=== PATIENT | female | born 1985 | race African-American/Black ===

== ENCOUNTER 2017-09-16 17:44 | Emergency (ER) | payer MEDICAID ==
[~2017-09-16] VITALS: Ht 149.9 cm; Wt 61.0 kg
[2017-09-16] MEDS ORDERED: METF500T4 PO (17:50)
[2017-09-16] MEDS ORDERED: SODIUM CHLORIDE 0.9% 1,000 ML IV ONE (18:29)
[2017-09-16 18:59] LABS: CHLORIDE 94 mEq/L (98-107); INR 1.1; PROTHROMBIN TIME 11.2 sec (9.4-11.6)
[2017-09-16 19:03] LABS: BASOPHILS % 0.7 % (0.0-2.0); EOSINOPHILS % 1.6 % (0.0-5.0); HEMATOCRIT. 34.3 % (36.0-48.0); HEMOGLOBIN. 10.8 g/dL (12.0-16.0); LYMPHOCYTES % 23.9 % (20.0-50.0); MEAN CORPUSCULAR HEMOGLOBIN 27.3 pg (28.0-32.0); MEAN CORPUSCULAR VOLUME 87.1 fL (81.0-99.0); MEAN PLATELET VOLUME 9.1 fl (7.4-10.4); MONOCYTES % 11.6 % (2.0-8.0); NEUTROPHILS % 62.2 % (40.0-76.0); PLATELET 405 x1000/uL (130-400); RED BLOOD CELL COUNT 3.94 mill/uL (4.2-5.4); RED CELL DISTRIBUTION WIDTH 16.8 % (11.6-14.6)
[2017-09-16 19:07] LABS: CARBON DIOXIDE 24 mEq/L (21-32)
[2017-09-16 21:00] VITALS: BP 139/108
[2017-09-16 21:33] LABS: KETONES URINE 2+ (NEGATIVE); LEUKOCYTE ESTERASE URINE NEGATIVE (NEGATIVE); NITRITE URINE NEGATIVE (NEGATIVE); OCCULT BLOOD URINE NEGATIVE (NEGATIVE); PROTEIN URINE NEGATIVE (NEGATIVE); SPECIFIC GRAVITY URINE 1.036 (1.005-1.030); UROBILINOGEN URINE 0.2 E.U./dL (0.2-1.0)
[2017-09-16 21:36] LABS: CLARITY URINE CLEAR (CLEAR); COLOR URINE YELLOW (YELLOW)
[2017-09-16] MEDS ORDERED: INSULIN REGULAR (HUMULIN R) 300UNITS/3ML IV ONE (22:30)
== END 2017-09-17 00:22 | disposition home or self-care (01) ==
LOC: ER 18:22
DX: E11.65 Type 2 diabetes mellitus with hyperglycemia (principal); I10 Essential (primary) hypertension; R53.1 Weakness; R42 Dizziness and giddiness; Z79.84 Long term (current) use of oral hypoglycemic drugs
CPT/HCPCS: 36415; 80053; 81001; 81025; 82962; 85025; 85610; 87086; 93005; 96361; 96374; 99285; J1815; J7030; Z7610

== ENCOUNTER 2019-12-20 02:55 | Inpatient (IN) | payer MEDICAID ==
[~2019-12-20] VITALS: Ht 151.1 cm; Wt 73.0 kg
[~2019-12-20 02:55] MED LIST: METF-414 PO
[2019-12-20] MEDS ORDERED: SODIUM CHLORIDE 0.9% 1,000 ML IV ONE ×2 (03:10→03:15)
[2019-12-20] MEDS ORDERED: ONDANSETRON HCL 4MG/2ML INJ IV STA (03:10)
[2019-12-20 03:32] LABS: BASOPHILS % 0.3 % (0.0-2.0); HEMATOCRIT. 36.6 % (36.0-48.0); HEMOGLOBIN. 12.5 g/dL (12.0-16.0); LYMPHOCYTES % 33.2 % (20.0-50.0); MEAN CORPUSCULAR HEMOGLOBIN 31.9 pg (28.0-32.0); MEAN CORPUSCULAR VOLUME 93.3 fL (81.0-99.0); MEAN PLATELET VOLUME 8.6 fl (7.4-10.4); MONOCYTES % 11.7 % (2.0-8.0); NEUTROPHILS % 53.8 % (40.0-76.0); PLATELET 360 x1000/uL (130-400); RED BLOOD CELL COUNT 3.93 mill/uL (4.2-5.4); RED CELL DISTRIBUTION WIDTH 12.9 % (11.6-14.6)
[2019-12-20 03:34] LABS: CHLORIDE 99 mEq/L (98-107)
[2019-12-20 03:36] LABS: INR 0.9; PARTIAL THROMBOPLASTIN TIME 26.6 sec (23.4-31.0); PROTHROMBIN TIME 10.3 sec (9.6-11.0)
[2019-12-20 03:39] LABS: ETHANOL BLOOD 35 mg/dL
[2019-12-20 03:41] LABS: BETA HYDROXYBUTYRATE 0.6 mMol/L (0.0-0.3)
[2019-12-20] MEDS ORDERED: POTASSIUM CHLORIDE 20MEQ TABLET SR PO SCH (04:00)
[2019-12-20 04:02] LABS: CLARITY URINE CLEAR (CLEAR); COLOR URINE YELLOW (YELLOW); KETONES URINE NEGATIVE (NEGATIVE); LEUKOCYTE ESTERASE URINE NEGATIVE (NEGATIVE); NITRITE URINE NEGATIVE (NEGATIVE); OCCULT BLOOD URINE NEGATIVE (NEGATIVE); PROTEIN URINE NEGATIVE (NEGATIVE); SPECIFIC GRAVITY URINE 1.028 (1.005-1.030); UROBILINOGEN URINE 0.2 E.U./dL (0.2-1.0)
[2019-12-20] MEDS ORDERED: INSULIN REGULAR (DRIP) 100 UNITS in SODIUM CHLORIDE 0.9% 99 ML IV ONE (04:15)
[2019-12-20 04:16] LABS: *COCAINE SCREEN URINE NEGATIVE (NEGATIVE); CANNABINOID URINE SCREEN NEGATIVE (NEGATIVE); METHADONE URINE SCREEN NEGATIVE (NEGATIVE); OPIATES URINE SCREEN NEGATIVE (NEGATIVE); PHENCYCLIDINE URINE SCREEN NEGATIVE (NEGATIVE)
[2019-12-20 04:17] LABS: *AMPHETAMINES SCREEN URINE NEGATIVE (NEGATIVE); *BARBITURATES SCREEN URINE NEGATIVE (NEGATIVE); *BENZODIAZEPINES SCREEN URINE NEGATIVE (NEGATIVE)
[2019-12-20] MEDS ORDERED: POTASSIUM ACETATE 40 MEQ in SODIUM CHLORIDE 0.9% 1,000 ML IV SCH (04:30)
[2019-12-20] MEDS ORDERED: POTASSIUM CHLORIDE INJ 40 MEQ in DEXT 5% WATER 250 ML IV SCH (04:30)
[2019-12-20] MEDS ORDERED: POTASSIUM CHLORIDE INJ 40 MEQ in SODIUM CHLORIDE 0.9% 1,000 ML IV SCH (04:30)
[2019-12-20] MEDS ORDERED: DEXTROSE 50% WATER 50ML SYRINGE IV PRN ×5 (06:30→13:15)
[2019-12-20] MEDS ORDERED: INSULIN REGULAR (DRIP) 100 UNITS in SODIUM CHLORIDE 0.9% 100 ML IV SCH (07:00)
[2019-12-20] MEDS ORDERED: MAGNESIUM/ALUMINUM HYDROXIDE/SIMETHICONE 30ML UDC PO PRN (07:15)
[2019-12-20] MEDS ORDERED: ONDANSETRON HCL 4MG/2ML INJ IV PRN (07:15)
[2019-12-20] MEDS ORDERED: ACETAMINOPHEN 325MG TABLET PO PRN ×2 (07:15)
[2019-12-20] MEDS ORDERED: IPRATROPIUM/ALBUTEROL 0.5-3(2.5)MG/3ML NEB ORI PRN (07:15)
[2019-12-20] MEDS ORDERED: GUAIFENESIN 200MG/10ML SUGAR FREE UDC PO PRN (07:15)
[2019-12-20] MEDS ORDERED: DOCUSATE SODIUM 100MG CAPSULE PO PRN (07:15)
[2019-12-20] MEDS: BLOOD SUGAR DIAGNOSTIC STRIP TEST SCH ×11 (07:30→21:00)
[2019-12-20] MEDS ORDERED: POTASSIUM CHLORIDE 20MEQ TABLET SR PO NR (08:00)
[2019-12-20 08:44] LABS: CHLORIDE 103 mEq/L (98-107)
[2019-12-20 08:50] LABS: PHOSPHORUS 3.1 mg/dL (2.5-4.9)
[2019-12-20] MEDS ORDERED: CEFTRIAXONE 1 G PREMIX 50 ML IV SCH (09:00)
[2019-12-20] MEDS ORDERED: LEVOFLOXACIN 500MG PREMIX 100 ML IV ONE (09:00)
[2019-12-20] MEDS: ASPIRIN 325MG EC TABLET PO SCH (09:04)
[2019-12-20] MEDS: LEVOTHYROXINE SODIUM 50MCG TABLET PO SCH (09:04)
[2019-12-20] MEDS: FAMOTIDINE 20MG TABLET PO SCH (09:04)
[2019-12-20] MEDS: SODIUM CHL 0.9% + KCL 20MEQ/L 1,000 ML IV SCH (09:26)
[2019-12-20] MEDS: ASCORBIC ACID 500 MG TABLET PO SCH ×2 (11:50→23:58)
[2019-12-20] MEDS: ENOXAPARIN 40MG/0.4ML SYR SUBCUT SCH (11:50)
[2019-12-20] MEDS: INSULIN LISPRO 100 UNITS/ML SUBCUT SCH ×4 (13:59→21:00)
[2019-12-20 15:30] VITALS: BP 123/81
[2019-12-20 16:00] VITALS: BP 123/81
[2019-12-20 17:00] VITALS: BP 128/85
[2019-12-20] MEDS: KETOROLAC 15MG/ML VIAL IV PRN (18:11)
[2019-12-20 19:48] LABS: CREATINE KINASE 202 IU/L (26-192)
[2019-12-20 19:49] LABS: CREATINE KINASE MB FRACTION < 1.0 ng/mL (0.5-3.6)
[2019-12-20 20:00] VITALS: BP 123/90
[2019-12-20] MEDS ORDERED: INSULIN GLARGINE UD 100 UNITS/ML SYR SUBCUT SCH ×2 (22:00→23:30)
[2019-12-20] MEDS: ZOLPIDEM TARTRATE 5MG TABLET PO PRN (23:58)
[2019-12-21] VITALS: BP 124/91
[2019-12-21] MEDS: SODIUM CHL 0.9% + KCL 20MEQ/L 1,000 ML IV SCH ×3 (00:23→17:47)
[2019-12-21 04:00] VITALS: BP 144/96
[2019-12-21] MEDS: LEVOTHYROXINE SODIUM 50MCG TABLET PO SCH (06:29)
[2019-12-21] MEDS: INSULIN LISPRO 100 UNITS/ML SUBCUT SCH ×7 (06:41→21:17)
[2019-12-21] MEDS: BLOOD SUGAR DIAGNOSTIC STRIP TEST SCH ×4 (06:45→21:16)
[2019-12-21] MEDS ORDERED: INSULIN REGULAR (DRIP) 100 UNITS in SODIUM CHLORIDE 0.9% 100 ML IV SCH (07:00)
[2019-12-21 08:00] VITALS: BP 124/96
[2019-12-21 08:09] LABS: CREATINE KINASE 194 IU/L (26-192)
[2019-12-21 08:10] LABS: CREATINE KINASE MB FRACTION < 1.0 ng/mL (0.5-3.6)
[2019-12-21] MEDS: CLONIDINE 0.1MG TABLET PO PRN (08:37)
[2019-12-21] MEDS: ASPIRIN 325MG EC TABLET PO SCH (08:37)
[2019-12-21] MEDS: FAMOTIDINE 20MG TABLET PO SCH (08:37)
[2019-12-21] MEDS: ENOXAPARIN 40MG/0.4ML SYR SUBCUT SCH (08:37)
[2019-12-21] MEDS: ASCORBIC ACID 500 MG TABLET PO SCH ×2 (08:37→21:16)
[2019-12-21] MEDS ORDERED: LEVOFLOXACIN 250MG PREMIX 50 ML IV SCH ×2 (09:00→13:00)
[2019-12-21 12:00] VITALS: BP 116/86
[2019-12-21] MEDS: INSULIN GLARGINE UD 100 UNITS/ML SYR SUBCUT SCH ×2 (12:00→21:15)
[2019-12-21] MEDS ORDERED: CEFTRIAXONE 1 G PREMIX 50 ML IV SCH (12:30)
[2019-12-21 16:00] VITALS: BP 116/90
[2019-12-21 20:00] VITALS: BP 128/72
[2019-12-21] MEDS: ZOLPIDEM TARTRATE 5MG TABLET PO PRN (21:21)
[2019-12-22] VITALS: BP 130/96
[2019-12-22] MEDS: SODIUM CHL 0.9% + KCL 20MEQ/L 1,000 ML IV SCH (00:08)
[2019-12-22 04:00] VITALS: BP 125/96
[2019-12-22] MEDS: LEVOTHYROXINE SODIUM 50MCG TABLET PO SCH (06:20)
[2019-12-22] MEDS: BLOOD SUGAR DIAGNOSTIC STRIP TEST SCH (06:20)
[2019-12-22] MEDS: INSULIN LISPRO 100 UNITS/ML SUBCUT SCH ×2 (06:21→06:23)
[2019-12-22 08:00] VITALS: BP 134/101
[2019-12-22 08:52] VITALS: BP 134/94
[2019-12-22] MEDS ORDERED: HYDR25TA PO (08:55)
[2019-12-22] MEDS ORDERED: LISI40TA4 MT (08:55)
[2019-12-22] MEDS ORDERED: AMLO10TA4 MT (08:55)
[2019-12-22] MEDS: ENOXAPARIN 40MG/0.4ML SYR SUBCUT SCH (09:00)
[2019-12-22] MEDS: CLONIDINE 0.1MG TABLET PO PRN (09:17)
[2019-12-22] MEDS: ASPIRIN 325MG EC TABLET PO SCH (09:17)
[2019-12-22] MEDS: ASCORBIC ACID 500 MG TABLET PO SCH (09:17)
[2019-12-22] MEDS: FAMOTIDINE 20MG TABLET PO SCH (09:17)
[2019-12-22] MEDS: INSULIN GLARGINE UD 100 UNITS/ML SYR SUBCUT SCH (09:19)
[2019-12-22] MEDS: KETOROLAC 15MG/ML VIAL IV PRN (09:22)
[2019-12-22 10:02] VITALS: BP 129/90
== END 2019-12-22 10:43 | disposition home or self-care (01) | DRG 420 ==
LOC: ER 02:55 → EDBEDREQ 05:09 → EDBEDREQTM 05:09 → EDBEDREQSVC 13:19 → ENRESERV 14:08 → 5WST 14:53
PROVIDERS: ADMIT Internal Medicine; ATTEND Internal Medicine
DX: E11.10 Type 2 diabetes mellitus with ketoacidosis without coma (principal); G90.8 Other disorders of autonomic nervous system; E03.9 Hypothyroidism, unspecified; E66.9 Obesity, unspecified; E87.6 Hypokalemia; I10 Essential (primary) hypertension; Z91.11 Patient's noncompliance with dietary regimen; Z91.14 Patient's other noncompliance with medication regimen; Z79.84 Long term (current) use of oral hypoglycemic drugs; Z68.32 Body mass index [BMI] 32.0-32.9, adult
CPT/HCPCS: 36415; 71045; 80053; 80305; 80320; 81003; 82010; 82550; 82553; 82962; 83036; 83605; 83735; 84100; 84443; 84484; 85025; 93005; 93970; 99291; J0696; J1650; J1815; J1885; J1956; J2405; J3480; J3490; J7030; J7050; J7060; G0480